=== PATIENT | female | born 1995 | race Caucasian/White ===

== ENCOUNTER 2016-07-31 05:43 | Inpatient (IN) | payer BC ==
[~2016-07-31] VITALS: Ht 160 cm; Wt 52.2 kg
--- NOTE | ~2016-07-31 | CON ---
[place], [place] REPORT OF CONSULTATION NAME: GURU HAYDEN UNIT #: [id number] ROOM: 529 DOCTOR: ANTON RED MD BIRTHDATE: [birth year] DOS: CARDIOLOGY CONSULTATION CHIEF COMPLAINT: Accidental drug overdose, elevated troponin levels. HISTORY OF PRESENT ILLNESS: The patient is a 20-year-old woman who has no history of heart disease. She was out with friends and reportedly took Percocet, a muscle relaxant and several shots of Tequila. She became unresponsive and bystander said that she stopped breathing. She was taken to her home where her mother drove her to the Emergency Room. In the Emergency Room, she was given Narcan and immediately regained consciousness. Her toxicology screen was positive for benzodiazepines, cocaine and cannabinoids. Blood tests also indicated that her troponin level was mildly elevated. The initial troponin was 0.099, subsequent levels were 0.046, 0.050 and 0.027. The patient denies any history of heart disease or heart murmur. She denies any rheumatic fever. She has never had a heart attack or stroke. She states that her family history is negative for early coronary artery disease. PAST MEDICAL HISTORY: Positive for previous accidental drug overdose and asthma. REVIEW OF SYSTEMS: The patient denies diplopia, loss of vision, or focal weakness. She denies lightheadedness or syncope aside from when she is taking drugs. She denies fevers, chills, sweats or recent weight changes. She denies orthopnea, PND. She denies chest pain, palpitations or history of heart murmur. She denies hemoptysis or hematemesis. She denies bleeding from any orifice. She denies any peripheral edema. She denies heat or cold intolerance. She denies polydipsia or polyuria. The remainder of the review of systems is negative except as noted above. FAMILY HISTORY: Negative for early coronary artery disease. SOCIAL HISTORY: The patient does drink alcohol to excess. She does not use tobacco products. She does use marijuana and has used cocaine. PHYSICAL EXAMINATION: GENERAL: The patient is a slender white female who is awake, alert and oriented. VITAL SIGNS: Pulse is 79 and regular, blood pressure is 94/58. She is afebrile. She weighs 52.2 kilograms with a body mass index of 20.4. HEENT: Normocephalic, atraumatic. Extraocular muscles are intact. Sclerae are clear. Pupils are round and reactive to light. The oral mucosa is moist. Tongue is midline. NECK: Supple. She has no jugular distention. Carotids are full. She has no bruit. She has no neck or supraclavicular masses. LUNGS: Respirations are unlabored. She had a few crackles at the bases that [place], [place] REPORT OF CONSULTATION NAME: GURU HAYDEN UNIT #: [id number] ROOM: 529 DOCTOR: ANTON RED MD BIRTHDATE: [birth year] cleared with cough. She had no presacral edema or chest wall tenderness. CARDIOVASCULAR: Her heart had a regular rhythm without murmurs, rubs or gallops. The PMI was not displaced. She had no precordial heave, lift or thrill. ABDOMEN: Soft and normoactive without masses, organomegaly or bruits. EXTREMITIES: Showed no edema. Peripheral pulses are easily palpated bilaterally. She had no splinter hemorrhages or Momin spots. She had no scleral hemorrhages. LABORATORY DATA: I reviewed her electrocardiogram, which showed sinus tachycardia, but was otherwise unremarkable. A chest x-ray showed normal findings. A CT angiogram of the chest showed no evidence for pulmonary emboli. She did have patchy airspace disease in the lower lobes bilaterally. White count is 8100, hemoglobin 12.1, platelet count 178,000. Blood gases on admission showed a pH of 7.395 with a pCO2 of 40.5 and a pO2 of 96.5. Sodium is 143, potassium 3.5, BUN 5, creatinine 0.69. On admission, the creatinine was elevated at 1.27. Drug screen was as noted above. IMPRESSIONS: 1. Accidental overdose with multiple drugs. 2. Elevated troponin level, possibly due to hypoxemia, hypotension, adverse reaction to cocaine, etc. Clinically, the patient does not have evidence for structural heart disease. We will do an echocardiogram. If this is normal, then no other cardiac workup would be appropriate at this time. The patient was cautioned that continued use of drugs could lead to irreparable harm. The patient is in denial that she could have done anything that might have hurt herself. [facility] and I thank the hospitalist physicians for asking our advice regarding her care. ANTON RED MD CM:CONSTR:REPORT OF CONSULTATION 0839 08/01/16 1010 interface
[~2016-07-31 05:43] MED LIST: 'PARAFON FORTE500 M1 PO; AMOXICILLIN500 MG PO; LOMOTIL 0.025 M1 TA1 PO; MACROBID100 M1 PO; MEDROL DOSEPAK4 MG PO; ZOFRAN ODT4 MG SL
[2016-07-31 06:30] LABS: BILIRUBIN NEGATIVE (NEGATIVE); BLOOD TRACE-INTACT (NEGATIVE); CLARITY CLEAR (CLEAR); COLOR YELLOW (YELLOW); GLUCOSE 2+ (NEGATIVE); KETONE NEGATIVE (NEGATIVE); LEUKO ESTERASE NEGATIVE (NEGATIVE); NITRITE NEGATIVE (NEGATIVE); PROTEIN 2+ (NEGATIVE)
[2016-07-31 06:39] LABS: MUCOUS 1+; URINE AMPHETAMINES < 1000 (1000ng/ml); URINE BARBITURATES < 200 (200ng/ml); URINE COCAINE > 300 (300ng/ml)
[2016-07-31 06:40] LABS: BACTERIA TRACE; URINE REFLEX COMMENT YES (NO)
[2016-07-31 06:51] LABS: ALBUMIN 3.7 gm/dl (3.1-4.5); ALKALINE PHOSPHATASE 93 U/L (45-117); BILIRUBIN, TOTAL 0.6 mg/dl (0.2-1.0); BUN 11 mg/dl (7-24); CARBON DIOXIDE 24 mmol/L (21-32); CHLORIDE 104 mmol/L (98-107); EST GLOM FILT AFRICAN AMERICAN > 60 ml/min; GLUCOSE 397 mg/dL (65-99); POTASSIUM 3.4 mmol/L (3.5-5.1); SGOT/AST 40 IU/L (3-35); SGPT/ALT 33 U/L (12-78); SODIUM 143 mmol/L (136-145); TOTAL PROTEIN 6.7 gm/dL (6.4-8.2)
[2016-07-31 06:54] LABS: TROPONIN I < 0.015 ng/ml (<0.045)
[2016-07-31 07:14] LABS: HEMOGLOBIN 13.3 g/dl (12.0-16.0); MEAN CELL VOLUME 88.1 fl (81.0-99.0); MEAN CORPUSCULAR HGB 29.3 pg (27.0-31.0); MEAN CORPUSCULAR HGB CONC 33.3 g/dl (33.0-37.0); MEAN PLATELET VOLUME 10.3 fl (9.6-12.3); PLATELET COUNT AUTOMATED 200 10*3/uL (130-400); RED BLOOD COUNT 4.54 10*6/uL (4.10-5.10); RED CELL DISTRI WIDTH 12.7 % (0-14.5); WHITE BLOOD COUNT 17.6 10*3/uL (4.8-10.8)
[2016-07-31 07:17] LABS: BURR CELLS FEW; LYMPHOCYTE # 8.6 10*3/uL (1.3-4.4); METAMYELOCYTES 4 % (0-0); MONOCYTE # 0.4 10*3/uL (0.1-1.0); MYELOCYTES 1 % (0-0); NEUTROPHIL # 7.7 10*3/uL (2.3-7.9); NEUTROPHILS 44 % (47-73); PLATELET SUFFICIENCY NORMAL (NORMAL); TOTAL CELLS COUNTED 100 #CELLS
[2016-07-31 11:57] LABS: ABG BASE EXCESS -0.1 mmol/L (-2.0-2.0); ABG CO2 CONTENT 25.7 mmol/L (23-27); ABG HCO3 24.5 mmol/l (22-26); ABG TEMPERATURE 97.5 F (98.0-99.0); ARTERIAL BLOOD GAS PH 7.395 (7.35-7.45); ARTERIAL BLOOD GAS PO2 96.5 mmHg (80-90)
[2016-07-31 17:39] LABS: BASO % 0.2 % (0.0-1.0); EOS # 0.1 10*3/uL (0.0-0.4); EOS % 1.3 % (1.0-4.0); HEMOGLOBIN 11.7 g/dl (12.0-16.0); LYMPH # 2.7 10*3/uL (1.3-4.4); LYMPH % 29.8 % (27.0-41.0); MEAN CELL VOLUME 85.9 fl (81.0-99.0); MEAN CORPUSCULAR HGB 29.5 pg (27.0-31.0); MEAN CORPUSCULAR HGB CONC 34.4 g/dl (33.0-37.0); MEAN PLATELET VOLUME 10.3 fl (9.6-12.3); MONO # 0.7 10*3/uL (0.1-1.0); MONO % 7.5 % (3.0-9.0); NEUT # 5.5 10*3/uL (2.3-7.9); NEUT % 60.8 % (47.0-73.0); PLATELET COUNT AUTOMATED 177 10*3/uL (130-400); RED BLOOD COUNT 3.96 10*6/uL (4.10-5.10); RED CELL DISTRI WIDTH 12.9 % (0-14.5)
[2016-07-31 17:55] LABS: ALBUMIN 2.9 gm/dl (3.1-4.5); ALKALINE PHOSPHATASE 64 U/L (45-117); BILIRUBIN, TOTAL 0.8 mg/dl (0.2-1.0); BUN 8 mg/dl (7-24); CARBON DIOXIDE 25 mmol/L (21-32); CHLORIDE 111 mmol/L (98-107); EST GLOM FILT AFRICAN AMERICAN > 60 ml/min; GLUCOSE 91 mg/dL (65-99); POTASSIUM 3.8 mmol/L (3.5-5.1); SGOT/AST 25 IU/L (3-35); SGPT/ALT 26 U/L (12-78); SODIUM 145 mmol/L (136-145); TOTAL PROTEIN 5.3 gm/dL (6.4-8.2)
[2016-07-31 17:58] LABS: TROPONIN I 0.046 ng/ml (<0.045)
[2016-08-01 05:58] LABS: BASO % 0.4 % (0.0-1.0); EOS # 0.2 10*3/uL (0.0-0.4); EOS % 1.9 % (1.0-4.0); HEMATOCRIT 35.6 % (37.0-47.0); HEMOGLOBIN 12.1 g/dl (12.0-16.0); LYMPH # 3.5 10*3/uL (1.3-4.4); LYMPH % 43.1 % (27.0-41.0); MEAN CELL VOLUME 86.4 fl (81.0-99.0); MEAN CORPUSCULAR HGB 29.4 pg (27.0-31.0); MEAN PLATELET VOLUME 10.5 fl (9.6-12.3); MONO # 0.5 10*3/uL (0.1-1.0); MONO % 6.7 % (3.0-9.0); NEUT # 3.9 10*3/uL (2.3-7.9); NEUT % 47.7 % (47.0-73.0); PLATELET COUNT AUTOMATED 178 10*3/uL (130-400); RED BLOOD COUNT 4.12 10*6/uL (4.10-5.10); WHITE BLOOD COUNT 8.1 10*3/uL (4.8-10.8)
[2016-08-01 06:18] LABS: PROTHROMBIN TIME 10.7 SECONDS (9.0-12.4)
[2016-08-01 06:23] LABS: ALKALINE PHOSPHATASE 73 U/L (45-117); BILIRUBIN, TOTAL 0.9 mg/dl (0.2-1.0); BUN 5 mg/dl (7-24); CARBON DIOXIDE 25 mmol/L (21-32); CHLORIDE 108 mmol/L (98-107); CHOLESTEROL 126 mg/dL (<200); EST GLOM FILT AFRICAN AMERICAN > 60 ml/min; FREE T4 1.01 ng/dl (0.76-1.46); GLUCOSE 81 mg/dL (65-99); HDL CHOLESTEROL 97 mg/dl (40-60); LDL CHOLESTEROL 16 mg/dL (9-159); PHOSPHOROUS 2.6 mg/dL (2.5-4.9); POTASSIUM 3.5 mmol/L (3.5-5.1); SGOT/AST 30 IU/L (3-35); SGPT/ALT 31 U/L (12-78); SODIUM 143 mmol/L (136-145); TOTAL PROTEIN 5.3 gm/dL (6.4-8.2); TRIGLYCERIDES 66 mg/dl (<150); VLDL CHOLESTEROL 13 mg/dL (6-40)
[2016-08-01 06:27] LABS: HEMOGLOBIN A1c 4.6 % (4.8-5.6)
[2016-08-01 06:28] LABS: THYROID STIM HORMONE (HS) 0.627 uIU/ml (0.358-4.75)
[2016-08-01 09:24] LABS: FOLIC ACID 8.62 ng/mL (>5.38); VITAMIN D, 25-HYDROXY 26.6 ng/mL (30-100)
[2016-08-01] MEDS ORDERED: LEVAQUIN500 M2 PO (17:30)
[2016-08-02 13:05] LABS: GLUTAMIC ACID DECARB AB 143008 <5.0 U/mL (0.0-5.0)
[2016-08-05 14:11] LABS: INSULIN ANTIBODIES 141598 <5.0 uU/mL (.)
== END 2016-08-01 17:57 | disposition home or self-care (01) | DRG 917 ==
LOC: ED 05:43 → EDHOLD 09:20 → 5E 09:33
PROVIDERS: Emergency Medicine Emergency Medical Services; Internal Medicine; Student in an Organized Health Care Education/Training Program
DX: T50.901A Poisoning by unspecified drugs, medicaments and biological substances, accidental (unintentional), initial encounter (principal); J18.9 Pneumonia, unspecified organism; J96.91 Respiratory failure, unspecified with hypoxia; N17.9 Acute kidney failure, unspecified; R65.10 Systemic inflammatory response syndrome (SIRS) of non-infectious origin without acute organ dysfunction; F14.10 Cocaine abuse, uncomplicated; F12.10 Cannabis abuse, uncomplicated; R00.0 Tachycardia, unspecified; R73.9 Hyperglycemia, unspecified; J45.909 Unspecified asthma, uncomplicated; F19.10 Other psychoactive substance abuse, uncomplicated; Y92.89 Other specified places as the place of occurrence of the external cause

== ENCOUNTER 2016-11-19 22:44 | Emergency (ER) | payer OTHER ==
[~2016-11-19] VITALS: Ht 160 cm; Wt 53.1 kg
[~2016-11-19 22:44] MED LIST changes: +LEVAQUIN500 M2 PO
[2016-11-20 00:21] LABS: BILIRUBIN NEGATIVE (NEGATIVE); BLOOD NEGATIVE (NEGATIVE); CLARITY SL CLOUDY (CLEAR); COLOR YELLOW (YELLOW); GLUCOSE NEGATIVE (NEGATIVE); KETONE TRACE (NEGATIVE); LEUKO ESTERASE NEGATIVE (NEGATIVE); NITRITE NEGATIVE (NEGATIVE); PROTEIN 1+ (NEGATIVE); SPECIFIC GRAVITY 1.015 (1.005-1.030)
[2016-11-20 00:40] LABS: URINE REFLEX COMMENT NO (NO); WBC 0-2 wbc/hpf (0-5)
== END 2016-11-19 23:49 | disposition home or self-care (01) ==
LOC: ED 22:44
PROVIDERS: Nurse Practitioner Family
DX: Z00.00 Encounter for general adult medical examination without abnormal findings (principal); F12.10 Cannabis abuse, uncomplicated; Z88.1 Allergy status to other antibiotic agents

== ENCOUNTER → 2017-02-12 | Outpatient (CLI) | payer OTHER ==
[2017-02-12 12:13] LABS: THYROXINE (T4) TOTAL 12.7 ug/dl (4.8-13.9)
[2017-02-12 12:18] LABS: THYROID STIM HORMONE (HS) 0.566 uIU/ml (0.358-4.75)
[2017-02-13 08:12] LABS: THYROID PEROXIDASE (TPO) AB 7 IU/mL (0-34)
[2017-02-13 16:11] LABS: THYROGLOBULIN ANTIBODY <1.0 IU/mL (0.0-0.9)
== END | disposition home or self-care (01) ==
LOC: LAB 11:34
PROVIDERS: Family Medicine
DX: R53.82 Chronic fatigue, unspecified (principal)

== ENCOUNTER → 2017-03-24 | Outpatient (CLI) | payer OTHER ==
[2017-03-24 16:22] LABS: BASO % 0.3 % (0.0-1.0); EOS # 0.2 10*3/uL (0.0-0.4); EOS % 2.3 % (1.0-4.0); HEMATOCRIT 38.5 % (37.0-47.0); LYMPH # 2.7 10*3/uL (1.3-4.4); LYMPH % 37.1 % (27.0-41.0); MEAN CELL VOLUME 83.5 fl (81.0-99.0); MEAN CORPUSCULAR HGB 28.2 pg (27.0-31.0); MEAN CORPUSCULAR HGB CONC 33.8 g/dl (33.0-37.0); MONO # 0.6 10*3/uL (0.1-1.0); MONO % 8.7 % (3.0-9.0); NEUT # 3.7 10*3/uL (2.3-7.9); NEUT % 51.5 % (47.0-73.0); PLATELET COUNT AUTOMATED 231 10*3/uL (130-400); RED BLOOD COUNT 4.61 10*6/uL (4.10-5.10); RED CELL DISTRI WIDTH 13.4 % (0-14.5); WHITE BLOOD COUNT 7.3 10*3/uL (4.8-10.8)
[2017-03-25 10:03] LABS: ANA DIRECT Negative (Negative)
== END | disposition home or self-care (01) ==
LOC: LAB 15:14 → ORTHO 15:14
PROVIDERS: Orthopaedic Surgery
DX: S83.209A Unspecified tear of unspecified meniscus, current injury, unspecified knee, initial encounter (principal); X58.XXXA Exposure to other specified factors, initial encounter; Y93.89 Activity, other specified; Y92.89 Other specified places as the place of occurrence of the external cause; Y99.8 Other external cause status

== ENCOUNTER → 2017-04-02 | Outpatient (CLI) | payer OTHER | END | disposition home or self-care (01) | LOC: MRI 12:50 | DX: S83.209A Unspecified tear of unspecified meniscus, current injury, unspecified knee, initial encounter (principal); X58.XXXA Exposure to other specified factors, initial encounter; Y93.89 Activity, other specified; Y92.89 Other specified places as the place of occurrence of the external cause; Y99.8 Other external cause status ==

== ENCOUNTER → 2017-05-20 | Outpatient (CLI) | payer BC ==
[~2017-05-20] MED LIST changes: +Percocet 325 MG1 TAB PO; +ZOFRAN4 MG PO
[2017-05-20 10:25] LABS: BASO % 0.3 % (0.0-1.0); EOS # 0.3 10*3/uL (0.0-0.4); EOS % 4.6 % (1.0-4.0); HEMATOCRIT 36.9 % (37.0-47.0); HEMOGLOBIN 12.2 g/dl (12.0-16.0); LYMPH # 2.1 10*3/uL (1.3-4.4); LYMPH % 28.7 % (27.0-41.0); MEAN CELL VOLUME 83.1 fl (81.0-99.0); MEAN CORPUSCULAR HGB 27.5 pg (27.0-31.0); MEAN CORPUSCULAR HGB CONC 33.1 g/dl (33.0-37.0); MEAN PLATELET VOLUME 10.2 fl (9.6-12.3); MONO # 0.5 10*3/uL (0.1-1.0); MONO % 7.1 % (3.0-9.0); NEUT # 4.3 10*3/uL (2.3-7.9); PLATELET COUNT AUTOMATED 315 10*3/uL (130-400); RED BLOOD COUNT 4.44 10*6/uL (4.10-5.10); RED CELL DISTRI WIDTH 12.9 % (0-14.5); WHITE BLOOD COUNT 7.3 10*3/uL (4.8-10.8)
[2017-05-20 10:30] LABS: BILIRUBIN NEGATIVE (NEGATIVE); BLOOD TRACE-INTACT (NEGATIVE); CLARITY CLEAR (CLEAR); COLOR YELLOW (YELLOW); GLUCOSE NEGATIVE (NEGATIVE); KETONE NEGATIVE (NEGATIVE); LEUKO ESTERASE NEGATIVE (NEGATIVE); NITRITE NEGATIVE (NEGATIVE); UROBILINOGEN 0.2 E.U./dl (0.2-1.0)
[2017-05-20 10:40] LABS: BACTERIA TRACE; RBC 0-2 rbc/hpf (0-2); WBC 0-2 wbc/hpf (0-5)
[2017-05-20 10:57] LABS: BUN 13 mg/dl (7-24); CHLORIDE 103 mmol/L (98-107); CREATININE 0.59 mg/dL (0.55-1.02); POTASSIUM 3.6 mmol/L (3.5-5.1); SODIUM 140 mmol/L (136-145)
== END | disposition home or self-care (01) ==
LOC: LAB 08:44
PROVIDERS: Orthopaedic Surgery
DX: S83.282A Other tear of lateral meniscus, current injury, left knee, initial encounter (principal); R94.31 Abnormal electrocardiogram [ECG] [EKG]; X58.XXXA Exposure to other specified factors, initial encounter; Y93.89 Activity, other specified; Y92.89 Other specified places as the place of occurrence of the external cause; Y99.8 Other external cause status

== ENCOUNTER → 2017-05-27 | Day surgery (SDC) | payer BC ==
[2017-05-20 09:04] VITALS: BP 108/72
[~2017-05-27] VITALS: Ht 160 cm; Wt 62.1 kg
[2017-05-27] VITALS (8 sets, daily range): BP systolic 100–131; BP diastolic 52–81
== END | disposition home or self-care (01) ==
LOC: SDC 05-20 08:45
DX: S83.282A Other tear of lateral meniscus, current injury, left knee, initial encounter (principal); M94.262 Chondromalacia, left knee; M65.862 Other synovitis and tenosynovitis, left lower leg; Z88.6 Allergy status to analgesic agent; Z98.890 Other specified postprocedural states; Z82.5 Family history of asthma and other chronic lower respiratory diseases; Z82.49 Family history of ischemic heart disease and other diseases of the circulatory system; X58.XXXA Exposure to other specified factors, initial encounter; Y93.89 Activity, other specified; Y92.89 Other specified places as the place of occurrence of the external cause; Y99.8 Other external cause status

== ENCOUNTER → 2017-09-02 | Outpatient (CLI) | payer OTHER | END | disposition home or self-care (01) | LOC: ORTHO 01:50 | DX: M79.671 Pain in right foot (principal) ==

== ENCOUNTER → 2017-12-18 | Outpatient (CLI) | payer OTHER | END | disposition home or self-care (01) | LOC: CT 07:49 | DX: R10.32 Left lower quadrant pain (principal); R11.0 Nausea; R19.7 Diarrhea, unspecified ==

== ENCOUNTER → 2022-09-16 | Outpatient (CLI) | payer OTHER ==
[2022-09-16 15:32] LABS: HEMATOCRIT 41.2 % (37.0-47.0); MEAN CELL VOLUME 88.8 fl (81.0-99.0); MEAN CORPUSCULAR HGB 28.9 pg (27.0-31.0); MEAN CORPUSCULAR HGB CONC 32.5 g/dl (33.0-37.0); MEAN PLATELET VOLUME 10.8 fl (9.6-12.3); PLATELET COUNT AUTOMATED 227 10*3/uL (130-400); RED BLOOD COUNT 4.64 10*6/uL (4.10-5.10); RETICULOCYTE % 0.96 % (0.50-2.50)
[2022-09-16 15:34] LABS: BILIRUBIN Negative (Negative); BLOOD 2+ (Negative); CLARITY Clear (Clear); COLOR Yellow (Yellow); GLUCOSE Negative (Negative); KETONE Negative (Negative); LEUKO ESTERASE Negative (Negative); NITRITE Negative (Negative); PH 7.5 (4.5-8.0); SPECIFIC GRAVITY 1.015 (1.001-1.030)
[2022-09-16 15:45] LABS: ACT PARTIAL THROMBO TIME 27.2 SECONDS (20.0-32.1)
[2022-09-16 16:00] LABS: BACTERIA 1+; EPITHELIAL CELLS 31-40; WBC 0-2 wbc/hpf (0-5)
[2022-09-16 16:06] LABS: ALKALINE PHOSPHATASE 79 U/L (46-116); BETA-HCG, QUANT < 3.0 mIU/mL (0-10); BUN 5 mg/dl (9-23); CHLORIDE 107 mmol/L (98-107); CHOLESTEROL 170 mg/dL (<200); GAMMA GLUTAMYL TRANSPEPTIDASE 13 U/L (0-73); LDL CHOLESTEROL 58 mg/dL (9-159); POTASSIUM 3.5 mmol/L (3.4-5.1); SGPT/ALT 20 U/L (10-49); T3 UPTAKE 19.5 % (22.4-36.7); THYROID STIM HORMONE (HS) 1.121 uIU/ml (0.550-4.780); THYROXINE (T4) TOTAL 8.6 ug/dl (4.5-10.9); TRIGLYCERIDES 60 mg/dl (<150); URIC ACID 2.7 mg/dL (3.1-7.8)
[2022-09-16 16:09] LABS: VITAMIN D, 25-HYDROXY 62.1 ng/mL (30-100)
[2022-09-16 16:10] LABS: B-hCG (QUALITATIVE) NEGATIVE (NEGATIVE)
[2022-09-16 18:00] LABS: ATYPICAL LYMPHS 14 % (0-0); PLATELET SUFFICIENCY NORMAL (NORMAL); TOTAL CELLS COUNTED 100 #CELLS
[2022-09-16 18:01] LABS: BURR CELLS FEW; OVALOCYTES FEW
[2022-09-17 05:06] LABS: TOTAL PROTEIN, SERUM 6.3 g/dL (6.0-8.5)
[2022-09-17 13:07] LABS: ANTI-DSDNA ANTIBODIES 1 IU/mL (0-9)
[2022-09-17 16:07] LABS: A/G RATIO 1.4 (0.7-1.7); ALBUMIN 3.7 g/dL (2.9-4.4); ALPHA-1-GLOBULIN 0.3 g/dL (0.0-0.4); ALPHA-2-GLOBULIN 0.8 g/dL (0.4-1.0); GAMMA GLOBULIN 0.6 g/dL (0.4-1.8); GLOBULIN, TOTAL 2.6 g/dL (2.2-3.9); M-SPIKE Not Observed g/dL (Not Observed)
[2022-09-18 09:07] LABS: INSULIN-LIKE GROWTH FACTOR-1 213 ng/mL (101-347)
[2022-09-18 10:08] LABS: TESTOSTERONE FREE, (DIRECT) 0.5 pg/mL (0.0-4.2)
[2022-09-20 06:08] LABS: DEHYDROEPIANDROSTERONE 263 ng/dL (31-701)
== END | disposition home or self-care (01) ==
LOC: LAB 15:02
PROVIDERS: ATTEND Family Medicine
DX: E78.5 Hyperlipidemia, unspecified (principal); R79.89 Other specified abnormal findings of blood chemistry; R53.83 Other fatigue; R74.8 Abnormal levels of other serum enzymes; E55.9 Vitamin D deficiency, unspecified

== ENCOUNTER → 2022-10-30 | Outpatient (CLI) | payer OTHER | END | disposition home or self-care (01) | LOC: US 10-07 14:00 | PROVIDERS: ATTEND Family Medicine | DX: R10.2 Pelvic and perineal pain (principal) ==

== ENCOUNTER → 2023-06-03 | Outpatient (CLI) | payer OTHER | END | disposition home or self-care (01) | LOC: US 05:16 | PROVIDERS: ATTEND Nurse Practitioner Women's Health | DX: Z34.81 Encounter for supervision of other normal pregnancy, first trimester (principal); Z3A.01 Less than 8 weeks gestation of pregnancy ==